=== PATIENT | female | born 1945 | race Caucasian/White ===

== ENCOUNTER 2016-11-17 10:49 | Observation (INO) | payer OTHER, MEDICARE ==
[2016-11-17] MEDS ORDERED: NS 1,000 ML IV ONE (11:06)
--- NOTE | 2016-11-17 11:23 | CPEKG ---
Heart Rate: 62 RR Interval: 968 P-R Interval: 184 QRSD Interval: 80 QT Interval: 408 QTC Interval: 415 P [place]: 78 QRS [place]: 65 T Wave [place]: 64 EKG Severity - ABNORMAL ECG - EKG Impression: SINUS RHYTHM EKG Impression: LEFT VENTRICULAR HYPERTROPHY EKG Impression: ANTERIOR Q WAVES, POSSIBLY DUE TO LVH Electronically Signed By: Meredith Chavira 17-Nov-2016 13:12:03
--- NOTE | 2016-11-17 11:26 | EDPHY ---
H & P Time Seen by Provider: 11/17/16 11:06 HPI/ROS: CHIEF COMPLAINT: Rectal bleeding HISTORY OF PRESENT ILLNESS: 71-year-old female with a history CAD and coronary stenting on Plavix presents with rectal bleeding. Onset of bright red blood per rectum 2 days ago, 3 episodes daily since then. Associated with passing blood clots. This morning she checked her blood pressure and it was 80/40 on 3 attempts. Associated with left lower quadrant cramping. She denies dizziness, but feels fatigued. She has a prior history of lower GI bleed in 2016, though to be secondary to a diverticular bleed. Colonoscopy at that time revealed sigmoid diverticulosis and no active bleeding. REVIEW OF SYSTEMS: Constitutional: No fever, no chills Eyes: No visual changes ENT: No sore throat Respiratory: No cough, no shortness of breath Cardiac: No chest pain Gastrointestinal: No nausea, no vomiting Genitourinary: No hematuria, no dysuria Musculoskeletal: No leg pain or swelling Skin: No rash Neurological: No headache, no numbness, no weakness Psychiatric: No depression Past Medical/Surgical History: Coronary artery disease Gastrointestinal hemorrhage Diverticulosis Social History: Manager Diversity: Dr. Charli Amaya Smoking Status: Light smoker Physical Exam: General Appearance: Alert, no distress Eyes: Pupils equal and round, no conjunctival pallor ENT, Mouth: Mucous membranes moist Neck: Normal inspection Respiratory: Lungs are clear to auscultation Cardiovascular: Regular rate and rhythm Gastrointestinal: Abdomen is soft and nontender Rectal: Melena present Neurological: A&O, nonfocal, normal gait Skin: Warm and dry, no rash Extremities: Nontender, no pedal edema Psychiatric: Mood and affect normal Constitutional: Initial Vital Signs Temperature (C) 36.7 C 11/17/16 10:55 Heart Rate 65 11/17/16 10:55 Respiratory Rate 16 11/17/16 10:55 Blood Pressure 98/45 L 11/17/16 10:55 O2 Sat (%) 93 11/17/16 10:55 O2 Delivery Mode Room Air Allergies/Adverse Reactions: No Known Allergies Allergy (Verified 11/17/16 10:55) Home Medications: Medication Instructions Recorded Alendronate Sodium [Fosamax 70 MG 70 mg PO JIANG@0700 07/31/15 (*)] Benazepril/Hydrochlorothiazide 1 each PO DAILY 07/31/15 [Lotensin Hct 20-12.5 mg Tablet] Carvedilol [Coreg (*)] 25 mg PO BIDMEAL 07/31/15 Clopidogrel Bisulfate [Plavix (*)] 75 mg PO DAILY 07/31/15 Aspirin EC [Aspirin EC 325 mg (*)] 325 mg PO DAILY #0 tab 08/01/15 Atorvastatin Calcium 40 mg PO DAILY #30 tablet 08/01/15 Cholecalciferol Vit D3 [Vitamin D3 2,000 units PO DAILY 09/12/15 (*)] Medical Decision Making - Diagnostics EKG Interpretation: EKG interpreted by me reveals normal sinus rhythm, rate 62, LVH. ED Course/Re-evaluation: This patient presents with lower GI bleed. Initial blood pressure is slightly low. IV normal saline given and her blood pressure improved to 100/78. Hematocrit is 23. I discussed the risks and benefits of blood transfusion with this patient and she agrees with a blood transfusion. I consulted Dr. Charli Amaya. He will see the patient in the hospital. The hospitalist service was consulted for admission. Differential Diagnosis: Differential diagnosis includes does not limited to esophageal varices, peptic ulcer disease, tumor, AVM, hemorrhoidal bleeding. - Data Points Laboratory Results: Laboratory Results 11/17/16 11:20 11/17/16 11:20 11/17/16 11/17/16 11/17/16 11:20 11:20 11:20 WBC RBC Hgb Hct MCV MCH MCHC RDW Plt Count MPV Neut % (Auto) Lymph % (Auto) [place] % (Auto) Eos % (Auto) Baso % (Auto) Nucleat RBC Rel Count Absolute Neuts (auto) Absolute Lymphs (auto) Absolute Monos (auto) Absolute Eos (auto) Absolute Basos (auto) Absolute Nucleated RBC Immature Gran % Immature Gran # PT 14.4 SEC SEC (12.0-15.0) INR 1.13 (0.83-1.16) APTT 29.4 SEC SEC (23.0-38.0) Sodium 136 mEq/L mEq/L (134-144) Potassium 3.3 mEq/L L mEq/L (3.5-5.2) Chloride 100 mEq/L mEq/L (97-110) Carbon Dioxide 29 mEq/l mEq/l (22-31) Anion Gap 7 mEq/L L mEq/L (8-16) BUN 18 mg/dL mg/dL (7-23) Creatinine 0.9 mg/dL mg/dL (0.6-1.0) Estimated GFR > 60 Glucose 92 mg/dL mg/dL (70-100) Calcium 9.5 mg/dL mg/dL (8.5-10.4) Stool Occult Bld Scrn Patient ABO/Rh O POSITIVE Antibody Screen NEGATIVE Crossmatch IS Only See Detail 11/17/16 11/17/16 11:20 11:15 WBC 3.77 10^3/uL L 10^3/uL (3.80-9.50) RBC 2.51 10^6/uL L 10^6/uL (4.18-5.33) Hgb 7.4 g/dL L g/dL (12.6-16.3) Hct 23.0 % L % (38.0-47.0) MCV 91.6 fL fL (81.5-99.8) MCH 29.5 pg pg (27.9-34.1) MCHC 32.2 g/dL L g/dL (32.4-36.7) RDW 12.7 % % (11.5-15.2) Plt Count 150 10^3/uL 10^3/uL (150-400) MPV 12.2 fL H fL (8.7-11.7) Neut % (Auto) 56.8 % % (39.3-74.2) Lymph % (Auto) 27.6 % % (15.0-45.0) [place] % (Auto) 13.5 % H % (4.5-13.0) Eos % (Auto) 1.6 % % (0.6-7.6) Baso % (Auto) 0.5 % % (0.3-1.7) Nucleat RBC Rel Count 0.0 % % (0.0-0.2) Absolute Neuts (auto) 2.14 10^3/uL 10^3/uL (1.70-6.50) Absolute Lymphs (auto) 1.04 10^3/uL 10^3/uL (1.00-3.00) Absolute Monos (auto) 0.51 10^3/uL 10^3/uL (0.30-0.80) Absolute Eos (auto) 0.06 10^3/uL 10^3/uL (0.03-0.40) Absolute Basos (auto) 0.02 10^3/uL 10^3/uL (0.02-0.10) Absolute Nucleated RBC 0.00 10^3/uL 10^3/uL (0-0.01) Immature Gran % 0.0 % % (0.0-1.1) Immature Gran # 0.00 10^3/uL 10^3/uL (0.00-0.10) PT INR APTT Sodium Potassium Chloride Carbon Dioxide Anion Gap BUN Creatinine Estimated GFR Glucose Calcium Stool Occult Bld Scrn POSITIVE H (NEGATIVE) Patient ABO/Rh Antibody Screen Crossmatch IS Only Medications Given: Discontinued Medications Sodium Chloride (Ns) 1,000 mls @ 0 mls/hr IV ONCE ONE PRN Reason: Wide Open Stop: 11/17/16 11:07 Last Admin: 11/17/16 11:32 Dose: 500 mls Departure - Departure Disposition: [facility] Inpatient Acute Clinical Impression: Severe anemia Gastrointestinal hemorrhage Qualifiers: GI bleed type/associated pathology: melena Qualified Code(s): K92.1 - Melena Condition: Fair
[2016-11-17 11:40] LABS: ADD DIFF? NO; ADD MORPH? NO; ADD SCAN? NO; ATYPICAL LYMPHOCYTE FLAG 20 (0-99); FRAGMENT RBC FLAG 0 (0-99); HEMOGLOBIN 7.4 g/dL (12.6-16.3); LEFT SHIFT FLG 0 (0-99); LIPEMIA HEMOLYSIS FLAG 80 (0-99); MEAN CELL HEMOGLOBIN 29.5 pg (27.9-34.1); MEAN CELL HEMOGLOBIN CONCENTR. 32.2 g/dL (32.4-36.7); MEAN CELL VOLUME 91.6 fL (81.5-99.8); MEAN PLATELET VOLUME 12.2 fL (8.7-11.7); PLATELET CLUMPS FLAG 0 (0-99); PLATELET COUNT 150 10^3/uL (150-400); RED BLOOD CELL COUNT 2.51 10^6/uL (4.18-5.33); RED CELL DISTRIBUTION WIDTH 12.7 % (11.5-15.2)
[2016-11-17 11:49] LABS: INR 1.13 (0.83-1.16); PROTIME(PATIENT) 14.4 SEC (12.0-15.0)
[2016-11-17 11:50] LABS: APTT 29.4 SEC (23.0-38.0)
[2016-11-17 11:57] LABS: ANION GAP 7 mEq/L (8-16); CALCIUM 9.5 mg/dL (8.5-10.4); CARBON DIOXIDE 29 mEq/l (22-31); CHLORIDE 100 mEq/L (97-110); CREATININE 0.9 mg/dL (0.6-1.0); GLOMERULAR FILTRATION RATE > 60; GLUCOSE 92 mg/dL (70-100); POTASSIUM 3.3 mEq/L (3.5-5.2); SODIUM 136 mEq/L (134-144)
[2016-11-17] MEDS ORDERED: ACETAMINOPHEN 325 MG TAB PO PRN (14:10)
[2016-11-17] MEDS ORDERED: ONDANSETRON 4 MG/2 ML VIAL IVP PRN (14:10)
[2016-11-17] MEDS ORDERED: PROTOCOL POTASSIUM 1 DOSE MISC PRN (14:12)
[2016-11-17] MEDS ORDERED: POTASSIUM CL 10 MEQ TAB PO ONE ×2 (14:39→20:32)
--- NOTE | 2016-11-17 14:50 | GHP ---
[f rep st] HISTORY AND PHYSICAL DATE OF ADMISSION: 11/17/2016 CHIEF COMPLAINT: Bright red blood per rectum. HISTORY: The patient is a 71-year-old female who had a diverticular bleed in September 2015. At that time, she had an EGD and colonoscopy with findings most consistent with diverticular bleeding. Ble eding ceased spontaneously. She did not have any recurrence until 1 year later, this most recent Ja nuary. She had bleeding for a couple days, and she spoke with Dr. Amaya. It spontaneously stopped, and nothing further was done. She is now re-bleeding currently for the last 3 days. Yesterday, ble eding was quite extensive, and she filled the toilet bowl with blood. She has been feeling fatigued for about 1 week, and her friends have been noticing she looks pale. She took her blood pressure t mic, and it was 80/40. She is having some lower quadrant abdominal cramping. Today the bleeding i s much lower than it was yesterday, blood mixed with stool. PAST MEDICAL HISTORY: 1. Coronary artery disease, status post multiple stents; last stenting in July 2015. 2. Diverticular bleed. 3. Hypertension. 4. Hyperlipidemia. MEDICATIONS: Please see computer record for full detailed list. She continues on aspirin and Plavi x. She reached her 1 year anniversary of her last stent in July, but she has failed to follow u p with Dr. Mack since then to discuss whether Plavix is needed on an ongoing basis. ALLERGIES: No known drug allergies. SOCIAL HISTORY: She will occasionally smoke (3 times a month); prior to that she was a heavier smok er but quit when she had her 1st heart attack. No alcohol. Her son lives with her. REVIEW OF SYSTEMS: Complete review of systems obtained. Review of systems is negative regarding co nstitutional, HEENT, GI, pulmonary, cardiovascular, , hematology, skin, muscular, endocrine, psych , except for positives and negatives as noted in HPI. FAMILY HISTORY: Reviewed. Noncontributory to presenting complaint. PHYSICAL EXAMINATION: GENERAL: Well-developed, well-nourished female in no acute distress. VITAL SIGNS: Temperature is 36.7, pulse 69, blood pressure 100/83, satting 97% on room air. EYES: Rachael l conjunctivae. Pupils equal and react to light. ENT: Normal ears, nose. Hearing intact. Normal lips and teeth. Oropharynx moist. NECK: Trachea midline. No thyromegaly. CHEST: Normal effort. LUNGS: Clear to auscultation bilaterally. CARDIOVASCULAR: Regular rate and rhythm. No murmur. N o lower extremity edema. ABDOMEN: Soft, nontender. No hepatosplenomegaly. SKIN: Warm, dry, and intact. No rash. MUSCULOSKELETAL: No cyanosis or clubbing. Strength 5/5 upper and lower extremit ies. NEUROLOGIC: Cranial nerves intact. Normal sensation to light touch. PSYCH: Alert and orien nissa x3. Normal mood and affect. Normal judgment and insight. Normal memory. LABORATORY DATA: White count 3.77, hematocrit 23.0, platelets 150. Sodium 136, potassium 3.3, chlo ride 100, bicarb 29, BUN 18, creatinine 0.9, glucose 92. INR is 1.13. Heme-positive from below. E KG reviewed by me; my personal interpretation is normal sinus rhythm with LVH. MEDICAL RECORD REVIEW: I reviewed medical records regarding diverticular bleed in September 2015. Norma castillo had EGD and colonoscopy that were negative except for some old blood in the colon, presumed to be due to A diverticular source. She had multiple stents placed to her right coronary artery, which al so involved a dissection in July 2015. ASSESSMENT/PLAN: 1. Lower gastrointestinal bleed. Suspect recurrent diverticular bleed. The bleeding has now slowe d down. However, if it picks up rapidly again, at that point, a stat tagged red blood cell scan schuyler uld be performed. I am not sure regarding benefit of repeating colonoscopy. The next step, if she rebleeds significantly, would be interventional radiology embolization and/or surgery: Dr. Monique bradley see her in consultation. 2. Acute blood loss with anemia. She is receiving 1 unit of packed red blood cells in the emergenc y room. Will follow serial H and H's. 3. Hypotension secondary to hypovolemia. Continue IV fluid resuscitation. We may need to hold blo od pressure medications. 4. Coronary artery disease, status post stent in July 2015. She has reached the 1-year time fr chun post stent, so therefore okay to hold Plavix acutely. She will need to coordinate with Cardiolo gy to discuss its need on a more long-term basis, especially weighing that against the bleeding issu es she is having. CODE STATUS: Full. ADMISSION STATUS: 1. Will admit to observation, as depending on clinical course she may stabilize. 2. DVT prophylaxis: SCDs only due to acute bleeding. /[id number]/MODL
[2016-11-17] MEDS: NS 1,000 ML IV SCH ×2 (15:09→23:34)
--- NOTE | 2016-11-17 15:20 | GCON ---
[f rep st] CONSULTATION GI INPATIENT CONSULTATION DATE OF CONSULTATION: 11/17/2016 I was kindly requested to see the patient by Dr. Meredith Chavira in consultation for a chief complaint of gastrointestinal bleeding and anemia. HISTORY OF PRESENT ILLNESS: Two days ago, she began to have some passage of bright red blood per rectum. This continued yesterday and she presented to the emergency department today. Today, she feels as if she has had less episodes. She denies abdominal pain with the above. She does feel somewhat fatigued. In September of last year, she had a similar episode. Then, she underwent upper endoscopy and colonoscopy by my partner, Dr. Jewell. Her upper endoscopy was essentially unremarkable. Colonoscopy showed some sigmoid diverticulosis with some concentration of blood in this area, but no active bleeding. PAST MEDICAL HISTORY: 1. As above. 2. Hypertension. 3. Elevated lipids. 4. Osteoporosis. 5. Coronary artery disease. 6. Otherwise, noncontributory. MEDICATIONS: Include Plavix. ALLERGIES: No known drug allergies. SOCIAL HISTORY: She apparently has a history of being a light smoker. Her daughter's name is Yolanda. FAMILY HISTORY: Negative for similar bleeding. REVIEW OF SYSTEMS: Positive pertinent review of systems as per my HPI. Otherwise, a complete review of systems is negative. PHYSICAL EXAM: CONSTITUTIONAL: Nontoxic-appearing, pleasant woman. SKIN: Warm, dry. EYES: Pupils equal, round, and reactive to light and accommodation. EARS, NOSE, MOUTH, AND THROAT: Oropharynx without masses, moist mucosa. CARDIOVASCULAR: Normal S2. Normal PMI. RESPIRATORY: Clear to auscultation and percussion anteriorly. GASTROINTESTINAL: Abdomen soft, nontender. NEUROLOGIC: Grossly nonfocal with cranial nerves grossly intact. PSYCHIATRIC: Orientation and insight appropriate. MUSCULOSKELETAL: Strength is grossly normal throughout. Normal station. LABORATORIES: Include Hemoccult-positive stool. Normal coags. White count 3.7 thousand. Initial hematocrit 23%. She has received some blood. Platelet count 150,000. Potassium 3.3. ASSESSMENT: Gastrointestinal bleeding. Almost certainly represents a recurrent sigmoid diverticular bleed, with her otherwise negative evaluation just last year. Now, based on her history, most likely it hopefully has stopped. PLAN: 1. Clear liquids. 2. Serial hematocrits. If her hematocrit remains stable, we can advance her diet as tolerated. 3. Agree with holding Plavix for now. 4. Otherwise, we will see how she does clinically. Hopefully, as above, her bleeding has stopped. No repeat colonoscopy, etc., needed at this time. Thank you for allowing me to help in the care of this patient. /[id number]/MODL [email or web address]
[2016-11-17] MEDS: CARVEDILOL 25 MG TAB PO SCH (17:48)
[2016-11-17 17:54] LABS: HEMATOCRIT 26.6 % (38.0-47.0); HEMOGLOBIN 8.9 g/dL (12.6-16.3)
[2016-11-17 18:15] LABS: POTASSIUM 3.4 mEq/L (3.5-5.2)
[2016-11-17 23:18] LABS: HEMATOCRIT 24.1 % (38.0-47.0); HEMOGLOBIN 8.1 g/dL (12.6-16.3)
[2016-11-18 06:01] LABS: % IMMATURE GRANULYOCYTES 0.2 % (0.0-1.1); ABSOLUTE IMMATURE GRANULOCYTES 0.01 10^3/uL (0.00-0.10); ADD DIFF? NO; ADD MORPH? NO; ADD SCAN? NO; ATYPICAL LYMPHOCYTE FLAG 0 (0-99); FRAGMENT RBC FLAG 0 (0-99); HEMATOCRIT 26.2 % (38.0-47.0); HEMOGLOBIN 8.5 g/dL (12.6-16.3); LEFT SHIFT FLG 0 (0-99); LIPEMIA HEMOLYSIS FLAG 80 (0-99); MEAN CELL HEMOGLOBIN 29.2 pg (27.9-34.1); MEAN CELL HEMOGLOBIN CONCENTR. 32.4 g/dL (32.4-36.7); MEAN PLATELET VOLUME 12.3 fL (8.7-11.7); PLATELET CLUMPS FLAG 0 (0-99); PLATELET COUNT 124 10^3/uL (150-400); RED BLOOD CELL COUNT 2.91 10^6/uL (4.18-5.33); RED CELL DISTRIBUTION WIDTH 13.4 % (11.5-15.2)
[2016-11-18 06:16] LABS: ANION GAP 4 mEq/L (8-16); CALCIUM 8.2 mg/dL (8.5-10.4); CARBON DIOXIDE 24 mEq/l (22-31); CHLORIDE 110 mEq/L (97-110); CREATININE 0.7 mg/dL (0.6-1.0); GLOMERULAR FILTRATION RATE > 60; GLUCOSE 77 mg/dL (70-100); POTASSIUM 4.1 mEq/L (3.5-5.2); SODIUM 138 mEq/L (134-144)
[2016-11-18 06:25] LABS: % SATURATION 25 % (20-55); TOTAL IRON BINDING CAPACITY 320 ug/dL (260-490)
[2016-11-18 07:48] VITALS: BP 146/71; PULSE 58; RESP 16; TEMP 98.3; O2SAT 91
[2016-11-18] MEDS: CARVEDILOL 25 MG TAB PO SCH (08:39)
[2016-11-18] MEDS ORDERED: HYDROCHLOROTHIAZIDE 12.5 MG CAP PO SCH (09:00)
[2016-11-18] MEDS ORDERED: FERROUS SULFATE 325 MG TAB PO SCH (09:00)
[2016-11-18] MEDS ORDERED: BENAZEPRIL HCL 20 MG TAB PO SCH (09:00)
[2016-11-18] MEDS ORDERED: ATORVASTATIN CALCIUM 40 MG TAB PO SCH (09:00)
[2016-11-18 12:33] LABS: HEMATOCRIT 28.8 % (38.0-47.0); HEMOGLOBIN 9.3 g/dL (12.6-16.3)
--- NOTE | 2016-11-18 20:19 | GDS ---
[f rep st] DISCHARGE SUMMARY DISCHARGE DIAGNOSES: 1. Recurrent diverticular bleed. 2. Acute blood loss anemia. 3. Hypotension secondary to hypovolemia. 4. Coronary artery disease, status post stents July 2015. HISTORY: The patient is a 71-year-old female who had a diverticular bleed in September 2015. At that time, she had EGD and colonoscopy that were unremarkable, except for some old blood most consistent with a diverticular bleed. Her bleeding ceased spontaneously. She has had a couple recent episode s of recurrent bleeding. On the day of presentation, she came into the emergency room because her b lood pressure was low, and family members have been noting that she looked pale. She had brisk blee ding on the day prior to admission, but by the time she presented it had already ceased. She was gi mel 1 unit of blood and IV fluid hydration. Her H and H stabilized, and she was no longer hypotensi ve. Gastroenterology did see her again in consultation, but again this is clearly a recurrence of her di verticular bleed. There is no indication for repeat colonoscopy. If she ever does have very rapid bleeding again, the next test would be a tagged red blood cell scan, and treatment would be IR embol ization and/or surgical. She is greater than 1 year out from her last stent, but has failed to foll ow up with Dr. Mack. It is recommended she follow up with Cardiology to discuss her ongoing need for aspirin and Plavix together. DISCHARGE MEDICATIONS: Please see computerized record for full detailed list. There are no new med ications at the time of hospital discharge. ADDITIONAL DISCHARGE INSTRUCTIONS: 1. Follow up with Dr. Mack to discuss whether Plavix can be discontinued greater than 1 year out from her last stent. 2. Ferrous sulfate 325 mg 1-2 times per day for 1 month until anemia resolves. 3. If return of rapid bleeding, return to ER immediately to get a tagged red blood cell scan. 4. Avoid nuts and seeds in the diet. Greater than 30 minutes of time was spent arranging this discharge. The patient was seen and examin ed by me on the day of discharge. /[id number]/MODL
--- NOTE | 2016-11-18 21:22 | SOAPPROG ---
SOAP Progress Note Assessment/Plan: Assessment/Plan: Lower G.I. bleed, almost certainly due to a recurrent sigmoid diverticular etiology. Now, resolved. - agree with d/c home, outpt. iron x 1 mo. Thanks! 11/18/16 21:22 Subjective: cc: lower G.I. bleed No further e/o bleeding. Denies rigors, chills, sweats, vomiting. Objective: Vital Signs Temp Pulse Resp BP Pulse Ox 36.8 C 58 L 16 146/71 H 91 L 11/18/16 07:47 11/18/16 08:39 11/18/16 07:47 11/18/16 08:41 11/18/16 07:47 Laboratory Results 11/18/16 12:10 11/18/16 05:36 11/17/16 11/18/16 11/19/16 05:59 05:59 05:59 Intake Total 2157 Output Total 150 Balance 2006 PT 14.4 SEC (12.0-15.0) 11/17/16 11:20 INR 1.13 (0.83-1.16) 11/17/16 11:20 Physical Exam - Physical Exam General Appearance: WD/WN, alert, no apparent distress EENT: PERRL/EOMI, normal ENT inspection, pharynx normal, TMs normal Neck: non-tender, full range of motion, supple, normal inspection Respiratory: chest non-tender, lungs clear, normal breath sounds Cardiac/Chest: normal peripheral pulses, regular rate, rhythm Peripheral Pulses: 2+: carotid (R), carotid (L), femoral (R), femoral (L), dorsalis-pedis (R), dorsalis-pedis (L) Abdomen: normal bowel sounds, non-tender, soft Pelvic Exam: deferred Rectal: deferred Back: Normal inspection Skin: normal color, warm/dry Lymphatic: no adenopathy Extremities: normal range of motion, non-tender, normal inspection, normal capillary refill Neuro/Psych: no motor/sensory deficits, alert, normal mood/affect, oriented x 3 ICD10 Worksheet Patient Problems: Problems Problem Status Onset CAD (coronary artery disease) Acute Gastrointestinal hemorrhage Acute Lower GI bleeding Acute Severe anemia Acute
== END 2016-11-18 13:06 | disposition home or self-care (01) ==
LOC: INTOOBSV 12:04 → F3E 14:24
PROVIDERS: ADMIT Internal Medicine; ATTEND Internal Medicine
PROC: 30233N0 Transfusion of Autologous Red Blood Cells into Peripheral Vein, Percutaneous Approach (ICD-10-PCS; principal; 2016-11-17)
DX: K57.91 Diverticulosis of intestine, part unspecified, without perforation or abscess with bleeding (principal); D62 Acute posthemorrhagic anemia; E86.1 Hypovolemia; I95.9 Hypotension, unspecified; I10 Essential (primary) hypertension; E78.5 Hyperlipidemia, unspecified; I25.10 Atherosclerotic heart disease of native coronary artery without angina pectoris; M81.0 Age-related osteoporosis without current pathological fracture; Z95.5 Presence of coronary angioplasty implant and graft; Z72.0 Tobacco use; Z79.02 Long term (current) use of antithrombotics/antiplatelets
CPT/HCPCS: 93005; 96360; 99285; G0378; P9016

== ENCOUNTER → 2017-11-01 | Outpatient (CLI) | payer OTHER, MEDICARE | LOC: FIMAGING 11:26 | PROVIDERS: ATTEND Family Medicine | DX: Z12.31 Encounter for screening mammogram for malignant neoplasm of breast (principal) ==